=== PATIENT | female | born 1970 | race Asian ===

== ENCOUNTER → 2017-10-09 | Day surgery (SDC) | payer OTHER ==
[~2017-10-09] MED LIST: DEXAMETHASONE SOD PHOS 20 MG/5 ML VIAL.; GLYCOPYRROLATE 1 MG/5 ML VIAL.; IOHEXOL 300 MG/ML 100ML VIAL.; LIDOCAINE 1% PF 2 ML VIAL. ID; LIDOCAINE 1% PF 5 ML VIAL.; MIDAZOLAM HCL/PF 2 MG/2 ML VIAL. IV; NEOSTIGMINE METHYLSULFATE 5 MG/5 ML SYRINGE.; ONDANSETRON PF 4 MG/2 ML VIAL.; PROPOFOL 20 ML IV; ROCURONIUM 50 MG/5 ML VIAL.; SEVOFLURANE 31 TO 60 MINUTES. IH; SUCCINYLCHOLINE 200 MG/10 ML VIAL.; fentaNYL PF VIAL 100 MCG/2 ML VIAL IV
[2017-10-09] MEDS: IV RINGERS,LACTATED 1000ML 1,000 ML IV ×2 (08:09)
[2017-10-09 08:36] LABS: NEG OBC UR NEG; POS OBC UR POS; U PREG PATIENT NEGATIVE (NEG)
== END | disposition home or self-care (01) ==
LOC: SURG 07:36
DX: K80.50 Calculus of bile duct without cholangitis or cholecystitis without obstruction (principal); Z87.39 Personal history of other diseases of the musculoskeletal system and connective tissue; Z86.39 Personal history of other endocrine, nutritional and metabolic disease
CPT/HCPCS: 43264; 74328; 81025; C1726; C1757; J0330; J1100; J2405; J2704; J2710; J3490; Q9967